=== PATIENT | female | born 2000 | race Caucasian/White ===

== ENCOUNTER 2023-01-22 13:33 | Emergency (ER) | payer OTHER, SELFPAY ==
--- NOTE | 2023-01-22 13:44 | ED.GENADULT ---
HPI - General Adult General Chief complaint: General Medical Stated complaint: sore throat Time Seen by Provider: 01/22/23 14:31 Source: patient Mode of arrival: ambulatory Limitations: no limitations History of Present Illness HPI narrative: 22 yo female with no significant PMHx presents to the ED today with sore throat, fevers, body aches, b/l ear pain, and N/V x4 days. States she has been unable to eat due to her throat pain. Is able to swallow saliva, drinks, and some food. She tried taking OTC cold medication however vomited this up. She tested negative for COVID yesterday at , was not discharged home on any medications. No known sick contacts. Denies headache, dizziness, hearing loss, vision changes, sinus pain, difficulty breathing, chest pain. Related Data Previous Rx's Medication Instructions Recorded amoxicillin 250 mg-potassium 10 ml PO Q8H 7 days #210 mL 01/22/23 clavulanate 62.5 mg/5 mL oral suspension (Augmentin) Allergies Allergy/AdvReac Type Severity Reaction Status Date / Time No Known Allergies Allergy Verified 01/22/23 13:44 Review of Systems Review of Systems: Constitutional: + fever, No chills, No fatigue, No malaise ENT/Mouth: +ear pain, No hearing loss, No nasal congestion, No sinus pain, No rhinorrhea, + sore throat Eyes: No eye pain, No swelling, No redness, No vision changes Cardio: No chest pain, No palpitations, No dyspnea on exertion, No orthopnea, No edema Respiratory: No SOB, No cough, No sputum, No wheezing, No dyspnea, No hemoptysis GI: + nausea, + vomiting, No hematemesis, No abdominal pain : No irregular bleeding, No dysuria, No frequency, No urgency, No hesitancy, No hematuria, No flank pain MSK: No back pain, No neck pain, No joint pain, No myalgias Skin: No skin lesions, No rashes Neuro: No weakness, No numbness, No paresthesias, No LOC, No dizziness, No headache All other systems reviewed and are negative. [facility] Past Medical History Attestation statement: The following information was validated with the patient. Source: old records reviewed and nursing notes reviewed Social History Social History Advance Directives: No Advance Directives Information Provided: No Physical Exam ED Vital Signs: Vital Signs - 24 hr 01/22/23 13:45 01/22/23 15:19 Temperature 98 F 98.2 F Pulse Rate 100 101 H Respiratory Rate 19 16 Blood Pressure 148/96 H 114/70 Pulse Oximetry 100 99 Oxygen Delivery Method Room Air Room Air BMI result Body Mass Index 38.4 Vital signs stable. Afebrile. General: Nontoxic appearing. NAD Skin: Warm and dry. No rashes or lesions. Head: Normocephalic, atraumatic. EENT: PERRLA. EOM intact. B/l EAC patent without erythema or edema, TMs intact without erythema, effusion or bulging. Moist mucous membranes. No mastoid tenderness. Tonsils with erythema, edema, & exudates bilaterally, R>L. Uvula midline. Controlling secretions. Speaking in full sentences. Neck: Mild left cervical LAD, tender to palpation. Normal ROM. Trachea midline. Cardiac: Chest wall symmetric. RRR. S1 and S1 appreciated. Lungs: CTA bilaterally. No rales, rhonchi, or wheezes. Normal respiratory effort without accessory muscle use. Abdomen: No visible lesions or scars. Soft, NT/ND. No masses, hepatomegaly, or splenomegaly. Ext: Upper and lower extremities atraumatic. Full ROM throughout. Capillary refill <2 seconds in all extremities. Pulses 2+ equal b/l. No edema, cyanosis, or clubbing. Neuro: AOx3. Normal speech. CN 2-12 grossly intact. NV intact distally. Course Course Course Narrative: This is a rapid medical exam: Additional HPI, ROS, PE not included below will be deferred to primary provider. Patient is a 22-year-old female presenting to the emergency department with sore throat x 4 days, unable to eat today r/t pain. Tried to take cold medicine but vomited. Was seen at urgent care yesterday and was tested for Covid, did not prescribe any medications. Patient states she did not have her throat swabbed yesterday. Reports subjective fevers. Patient noted to have erythema, edema, and exudate to tonsils, R>L, uvula miline. Plan: Swab for strep, flu, covid Reevaluation(s) Reevaluation #1: 2619-- serology negative for COVID, flu, strep. As patient has b/l tonsilar exudates/ edema, likely strep however patient with left cervical LAD > will obtain Monospot. 1601-- Monospot negative > patient's symptoms consistent with strep throat. On re-evaluation, patient reports symptom improvement after receiving viscous lido and decadron. Will send patient home with 7 day script of Augment > she is requesting this be in liquid form. Additionally recommended patient use OTC chloroseptic spray to help with discomfort. Educated on return precautions. Answered all questions. Patient agreeable with plan. Stable for discharge. Medications Administered Discontinued Medications Generic Name Dose Route Start Last Admin Trade Name Freq PRN Reason Stop Dose Admin Dexamethasone Sodium Phosphate 10 mg 01/22/23 15:02 01/22/23 15:28 Dexamethasone Sod Phosphate 10 Mg/Ml Vial IVPUSH 01/22/23 15:03 10 mg ONCE ONE Administration Lidocaine HCl 15 ml 01/22/23 15:02 01/22/23 15:29 Lidocaine Hcl Viscous 2 % 15 Ml Solution MUCOUS MEM 01/22/23 15:03 15 ml ONCE ONE Administration Medical Decision Making Medical Decision Making [facility] Narrative: 22 yo female with no significant PMHx presents to the ED today with sore throat, fevers, body aches, b/l ear pain, and N/V x4 days. Vital signs stable. Patient nontoxic appearing in NAD. B/l EAC patent without erythema or edema, TMs intact without erythema, effusion or bulging. No mastoid tenderness. Moist mucous membranes. Tonsils with erythema, edema, & exudates bilaterally, R>L. Uvula midline. Controlling secretions. Speaking in full sentences. Mild left cervical LAD, tender to palpation. Clinical concern for viral syndrome vs strep pharyngitis vs tonsilitis vs mono > will obtain swabs. Low suspicion for [employer] or retropharyngeal abscess. Unlikely epiglottitis, otitis media, or mastoiditis. Differential Diagnosis Differential Diagnoses: The differential diagnosis associated with the presentation includes As above. Admission/Observation Not indicated. Lab Data [facility] Lab Attestation statement: I reviewed the patient's lab results. See above course negative. Labs: Lab Results 01/22/23 01/22/23 Range/Units 13:50 15:27 COVID-19 (BRITTNEY) Negative (Negative) COVID-19 Clin Com See Note Monoscreen Negative (Negative) Influenza Type A (DERICK) Negative (Negative) Influenza Type B (DERICK) Negative (Negative) Influenza A & B Note See Note S. pyogenes GrpA DERICK Negative (Negative) Prescription Management I considered prescription management with: Pain Medication and Antibiotic Critical Care Time Critical Care Time Critical Care Time: No Discharge Plan Discharge Clinical Impression: Strep throat Patient Disposition: Home, Self-Care Instructions: Strep Throat (ED) Additional Instructions: Your serology today was negative for COVID, flu, mono, strep throat, however your symptoms are consistent with strep throat. The liquid form of Augmentin, an antibiotic, has been sent to your pharmacy. Take this as prescribed for 7 days. Do not miss any doses. Stopping antibiotics can cause infection to come back or worsen. You can also purchase [id number] Chloraseptic spray to spray on the back of your throat. Take Tylenol or Motrin as needed for fever or pain. Return to the emergency department if your symptoms worsen,you cannot control your secretions or speak in full sentences. In the case of emergency call 911. [place]meron serolog?a de hoy fue negativa para COVID, gripe, mono, faringitis estreptoc?cica, sin embargo minh s?ntomas son consistentes con faringitis estreptoc?cica. Le hemos enviado a salmeron farmacia la forma l?quida de Augmentin, un antibi?troy. T?roman seg?n lo prescrito chet 7 d?as. No omita ninguna dosis. Dejar de cedrick antibi?ticos puede hacer que la infecci?n regrese o empeore. Tambi?n puedes comprar un spray cloras?ptico de venta breanna para rociarlo en la parte posterior de la garganta. [place] Tylenol o Motrin seg?n sea necesario para la fiebre o el dolor. Regrese al departamento de emergencias si minh s?ntomas empeoran, no puede controlar minh secreciones ni hablar con oraciones completas. En erik de emergencia llame al 911. Prescriptions: New amoxicillin-pot clavulanate [Augmentin] 250-62.5 mg/5 mL suspension for reconstitution 10 ml PO Q8H 7 Days Qty: 210 0RF Referrals: Physician,None [Primary Care Provider] - Stand Alone Forms: Work/School Release Interventions: ED Discharge Assessment Last Done: 01/22/23 16:49 Discharge Date/Time: 01/22/23 16:51 Print Language: Bhutanese
[2023-01-22 13:45] VITALS: BP 148/96; PULSE 100; RESP 19; TEMP 36.6; O2SAT 100; BMI 38.4
[2023-01-22 14:07] LABS: IDNOW Serial# 08D9AD1C; Strep A Nucleic Acid Negative (Negative)
[2023-01-22 14:22] LABS: COVID-19 Test Negative (Negative); IDNOW Serial# 9DB6401D; IDNOW Serial# BCCEAD1C; Influenza A Negative (Negative); Influenza B2 Negative (Negative)
[2023-01-22 15:19] VITALS: BP 114/70; PULSE 101; RESP 16; TEMP 36.8; O2SAT 99
[2023-01-22] MEDS: dexAMETHasone sod phosphate 10 MG/ML VIAL IVPUSH (15:28)
[2023-01-22] MEDS: Lidocaine HCl Viscous 2 % 15 ML SOLUTION MUCOUS MEM (15:29)
[2023-01-22 15:51] LABS: Monotest Negative (Negative)
== END 2023-01-22 16:51 | disposition home or self-care (01) ==
PROVIDERS: Physician Assistant Medical; Registered Nurse Emergency; Emergency Provider Emergency Medicine
DX: J02.0 Streptococcal pharyngitis (principal); J02.9 Acute pharyngitis, unspecified; R50.9 Fever, unspecified; H92.03 Otalgia, bilateral; R11.2 Nausea with vomiting, unspecified; Z20.822 Contact with and (suspected) exposure to COVID-19
CPT/HCPCS: 36415; 86308; 87502; 87635; 87651; 99283; J1100